=== PATIENT | female | born 1975 | race American Indian/Alaskan Native ===

== ENCOUNTER 2021-09-19 06:03 | Observation (INO) | payer OTHER ==
[2021-09-17 10:03] LABS: Basophils % (Auto) 0.2 % (0.0-1.8); Eosinophils # (Auto) 0.1 K/mm3 (0.0-0.4); Eosinophils % (Auto) 1.7 % (0.0-4.3); Hematocrit 34.7 % (30.3-42.9); Hemoglobin 11.4 gm/dl (10.1-14.3); Lymphocytes # (Auto) 0.9 K/mm3 (1.2-5.4); Lymphocytes % (Auto) 31.7 % (13.4-35.0); Mean Corpuscular HGB Conc 33 % (30-34); Mean Corpuscular Volume 90 fl (79-97); Monocytes # (Auto) 0.4 K/mm3 (0.0-0.8); Monocytes % (Auto) 13.3 % (0.0-7.3); Platelet Count 182 K/mm3 (140-440); Red Blood Count 3.85 M/mm3 (3.65-5.03); Red Cell Distribution Width 13.4 % (13.2-15.2)
[2021-09-17 10:16] LABS: Alanine Aminotransferase 18 units/L (7-56); Albumin 3.9 g/dL (3.9-5); BUN/Creatinine Ratio 11; Blood Urea Nitrogen 10 mg/dL (7-17); Calcium 9.4 mg/dL (8.4-10.2); Hemolysis Index 0
--- NOTE | 2021-09-17 10:49 | Anesthesia Consultation ---
Anesthesia Consult and Med Hx Date of service: 09/19/21 - Airway Anesthetic Teeth Evaluation: Crowns ROM Head & Neck: Adequate Mental/Hyoid Distance: Adequate Mallampati Class: Class II Intubation Access Assessment: Probably Good - Pre-Operative Health Status ASA Pre-Surgery Classification: ASA3 Proposed Anesthetic Plan: General Nerve Block: TAP - Pulmonary Hx Smoking: No Hx Respiratory Symptoms: No (+2FS) Hx Sleep Apnea: No - Cardiovascular System Hx Hypertension: No (Saw social worker in August; ETT/ECHO 08/2016 reviewed) - Central Nervous System Hx Psychiatric Problems: Yes (Situational depression) - Gastrointestinal Hx Gastroesophageal Reflux Disease: Yes - Endocrine Hx Non-Insulin Dependent Diabetes: Yes ("PRE") Hx Thyroid Disease: Yes Hx Hypothyroidism: Yes - Other Systems Hx Cancer: No - Additional Comments Anesthesia Medical History Comments: Mixed connective tissue disease. Sjogren's. Rheumatoid arthritis
[~2021-09-19 06:03] MED LIST: ACETAMINOPHEN 500 MG TAB PO SCH; CELECOXIB 200 MG CAP PO NR; GABAPENTIN 300 MG CAP PO NR; LACTATED RINGERS 1,000 ML IV SCH; MIDAZOLAM 2 MG/2 ML INJ IV NR
[2021-09-19] MEDS ORDERED: BACTERIOSTATIC SODIUM CHLORIDE 0.9% 30 ML VIAL INFILTRATI ONE (06:32)
[2021-09-19] MEDS ORDERED: ACETAMINOPHEN 500 MG TAB PO SCH (07:00)
[2021-09-19] MEDS ORDERED: MAGNESIUM OXIDE 400 MG TAB PO SCH (07:00)
[2021-09-19] MEDS ORDERED: fentaNYL 100 MCG/2 ML INJ IV SCH (07:00)
[2021-09-19] MEDS ORDERED: dexAMETHasone 4 MG/ML VIAL ONE (07:27)
[2021-09-19] MEDS ORDERED: BUPIVACAINE-EPINEPHRINE/PF 0.25%-1:200,000 (30 ML) VIAL INFILTRATI ONE (07:27)
[2021-09-19] MEDS ORDERED: ceFAZolin/Water 2 GM/20 ML 2 GM/20 ML SYRINGE IV NR (07:30)
[2021-09-19] MEDS ORDERED: ROCURONIUM 50 MG/5 ML INJ IV ONE ×2 (07:36→09:44)
[2021-09-19] MEDS ORDERED: fentaNYL 100 MCG/2 ML INJ ONE (07:36)
[2021-09-19] MEDS ORDERED: ONDANSETRON 4 MG/2 ML INJ ONE (07:36)
[2021-09-19] MEDS ORDERED: LIDOCAINE MPF (2%) 20 MG/1 ML VIAL 5 ML ONE (07:36)
[2021-09-19] MEDS ORDERED: HYDROmorphone 1 MG/1 ML INJ ONE (07:37)
[2021-09-19] MEDS ORDERED: propofoL 200 MG/20 ML VIAL IV ONE (07:37)
[2021-09-19] MEDS ORDERED: BUPIVACAINE/PF (0.25%) 2.5 MG/ML 10 ML VIAL INFILTRATI ONE (07:39)
[2021-09-19] MEDS: MIDAZOLAM 2 MG/2 ML INJ IV SCH ×2 (07:44→07:51)
[2021-09-19] MEDS ORDERED: ONDANSETRON 4 MG/2 ML INJ IV PRN (08:00)
[2021-09-19] MEDS ORDERED: HYDROmorphone 1 MG/1 ML INJ IV PRN ×2 (08:00→09:00)
--- NOTE | 2021-09-19 08:01 | Anesthesia Day of Surgery ---
Anesthesia Day of Surgery - Day of Surgery Patient Examined: Yes Patient H&P Reviewed: Yes Patient is NPO: Yes
[2021-09-19] MEDS ORDERED: ceFAZolin/Water 2 GM/20 ML 2 GM/20 ML SYRINGE IV ONE (08:03)
--- NOTE | 2021-09-19 08:08 | History and Physical Report ---
History of Present Illness Date of examination: 09/19/21 Date of admission: 09/19/21 Chief complaint: I am bleeding irregularly History of present illness: Pt is 46 year old who presents for total lap hysterectomy secondary to DUB. Pt had an EMB that revealed proliferative endometrium and patient preferred definitive therapy. Past History Past Medical History: other (rheumatoid) Past Surgical History: No surgical history Social history: Family history: no significant family history Medications and Allergies Allergies Allergy/AdvReac Type Severity Reaction Status Date / Time No Known Allergies Allergy Unverified 09/11/21 17:05 Home Medications Medication Instructions Recorded Confirmed Last Taken Type Atorvastatin (Nf) [Lipitor (Nf)] 10 mg PO QHS 09/11/21 09/11/21 Unknown History Famotidine [Pepcid] 40 mg PO QHS 09/11/21 09/11/21 Unknown History Hydroxychloroquine [Plaquenil] 200 mg PO BID 09/11/21 09/11/21 Unknown History Pantoprazole [Protonix TAB] 20 mg PO QDAY 09/11/21 09/11/21 Unknown History buPROPion SR [Wellbutrin Sr] 150 mg PO BID 09/11/21 09/11/21 Unknown History metFORMIN [Glucophage] 500 mg PO BID 09/11/21 09/11/21 Unknown History Cyclobenzaprine [Flexeril] 10 mg PO BID PRN 09/17/21 09/17/21 Unknown History Fluticasone [Flonase] 1 spray NS QDAY 09/17/21 09/17/21 Unknown History Ondansetron (Nf) [Zofran TAB] 8 mg PO Q8HR 09/17/21 09/17/21 Unknown History Pilocarpine HCl 7.5 mg PO TID 09/17/21 09/17/21 Unknown History Thyroid,Pork [Thyroid] 30 mg PO DAILY 09/17/21 09/17/21 Unknown History hydrOXYzine HCL [Atarax] 25 mg PO TID PRN 09/17/21 09/17/21 Unknown History methylPREDNISolone [Medrol] 4 mg PO Q24HR PRN 09/17/21 09/17/21 Unknown History Active Meds: Active Medications Acetaminophen (Acetaminophen 500 Mg Tab) 1,000 mg PO ONCE@0700 PEREZ Stop: 09/19/21 21:00 Celecoxib (Celecoxib 200 Mg Cap) 400 mg PO PREOP NR Stop: 09/19/21 21:00 Fentanyl (Fentanyl 100 Mcg/2 Ml Inj) 100 mcg IV ONCE@1100 PEREZ Stop: 09/19/21 21:00 Gabapentin (Gabapentin 300 Mg Cap) 300 mg PO PREOP NR Stop: 09/19/21 21:00 Lactated Ringer's (Lactated Ringers) 1,000 mls @ 125 mls/hr IV DIRECT PEREZ Magnesium Oxide (Magnesium Oxide 400 Mg Tab) 400 mg PO ONCE@0700 PEREZ Stop: 09/19/21 21:00 Methocarbamol (Methocarbamol 750 Mg Tab) 1,500 mg PO ONCE@0700 PEREZ Stop: 09/19/21 21:00 Midazolam HCl (Midazolam 2 Mg/2 Ml Inj) 2 mg IV PREOP NR Stop: 09/19/21 23:59 Review of Systems All systems: negative - Constitutional fatigue - Genitourinary Genitourinary: dysmenorrhea, pelvic pain, abnormal vaginal bleeding Menstruation: period heavy - Integumentary deferred Exam Vital Signs Temp Pulse Resp BP Pulse Ox 98.3 F 102 H 16 120/70 100 09/17/21 09:40 09/17/21 09:40 09/17/21 09:40 09/17/21 09:40 09/17/21 09:40 - General physical appearance Positive: well developed, well nourished, no distress - Eyes Positive: PERRL, normal occular movement - Neck Positive: no masses, no bruits, trachea midline, no venous distension - Respiratory Positive: normal expansion, normal respiratory effort, clear to auscultation - Cardiovascular Rhythm: regular Heart Sounds: Present: S1 & S2. Absent: rub, click - Extremities Extremities: no ischemia, pulses symmetrical, No edema - Breasts Breasts: normal, no mass, no skin changes - Abdomen Abdomen: Present: soft, bowel sounds normal. Absent: tender, distended Hernia: none - Genitourinary Female Genitourinary: normal Results - Labs 09/17/21 06:00 09/17/21 06:00 Assessment and Plan Pt here for definitive therapy of AUB. Consents signed and placed on chart. Patient aware that ovaries will stay in place. Will proceed with surgery as planned
[2021-09-19] MEDS ORDERED: dexAMETHasone 20 MG/5 ML VIAL ONE (09:34)
[2021-09-19] MEDS ORDERED: SODIUM CHLORIDE 0.9% IRR 1,500 ML BOTTLE IR ONE (09:34)
[2021-09-19] MEDS ORDERED: WATER FOR IRRIG STERILE 1,500 ML BOTTLE IR ONE (09:34)
[2021-09-19] MEDS ORDERED: LACTATED RINGERS 1,000 ML ONE (09:41)
[2021-09-19] MEDS ORDERED: SODIUM CHLORIDE 0.9% IRRIG SOLN 2000 ML IR ONE (10:05)
[2021-09-19] MEDS ORDERED: NEOSTIGMINE 10MG/10 ML INJ MDV ONE (10:19)
[2021-09-19] MEDS ORDERED: GLYCOPYRROLATE 0.4 MG/2 ML INJ ONE (10:19)
--- NOTE | 2021-09-19 10:56 | Post Operative Note ---
Pre-op diagnosis: Dysfunctional uterine bleeding Post-op diagnosis: same Findings: Normal pelvic anatomy Procedure: Total laparoscopic hysterectomy Anesthesia: GETA Surgeon: HAL ZAMBRANO Estimated blood loss: other (100) Pathology: list (Uterus and fallopian tubes) Specimen disposition: to lab Condition: stable Disposition: PACU
--- NOTE | 2021-09-19 11:00 | Operative Report ---
Operative Report Operative Report: Preoperative diagnosis: Dysfunctional uterine bleeding Postoperative diagnosis: Same Procedure:Total laparoscopic hysterectomy Surgeon: Jessica Bennett. Chief Information Security Officer: Raphael Hoover Anesthesia: General EBL: 100 mL IV fluids: 1800 mL Urine output: 300 mL Findings: Normal size uterus tubes and ovaries Specimens: Uterus, fallopian tubes Complications: None The patient was properly identified as herself. She was then taken to the OR with IV running and in place. She was given general anesthesia without diffi culty. She was placed in a dorsal lithotomy position. She was then prepped and draped in normal sterile fashion. Attention was turned to the patient's vagina. A Edgar catheter was inserted into her bladder. The speculum was then placed the patient's vagina. The cervix was visualized and grasped with tenaculum. The large Vesicare retractor was placed into the patient's uterus and the bulb inflated. The surgeon's gloves were changed and attention turned to the patient's abdomen. A small incision was made in the patient's umbilicus incision a 5 mm trocar was placed. The laparoscope confirmed intra-abdominal placement. The abdomen was insufflated with CO2 gas to approximately 25 mmHg. 2 additional incisions were made in the right and left lower quadrants. Through both of these incisions 5 mm trochars were placed. Attention was turned to the left adnexa. Attention was then turned to the left pelvic sidewall. The broad ligament was traversed and cauterized the tube from the ovarian attachment. Following this the round ligament was cauterized and transected as well and the bladder flap was initiated on the left. The utero-ovarian artery was also cauterixzed and transected. Attention was then turned to the right sidewall. The broad, round and uteroovarian ligaments were all cauterized and transected. The bladder flap was completed as the right side was taken down to meet the left. The uterine arteries were skeletonized bilaterally and cauterized and transected. AT this point the colpotomy incision was initiated using the J hook. A circumferential incision was made around the cup until the uterus was completely free. Attention was then turned back to the vagina. a weighted speculum was placed in the vagina and the manipulator was moved the the point where the cervix could be seen, However was exuded from the actual cervix. With the assistance of the tech the laparoscope was turned back on and the cervix was grasped with an Allis clamp under direct visualization and delivered in one piece through the vagina. The vaginal cuff was then closed in a running locked fashion with 2.0 vicryl. A second look was taken inside the abdomen with the la parosope. At this point the abdomen was deflated. All instruments were then removed from the abdomen. The incisions were then closed with 4-0 Monocryl. The incisions were also injected with quarter percent Marcaine. The patient tolerated the procedure well she was then awakened and taken recovery in stable condition. Sponge needle and instrument counts were correct 2.
[2021-09-19] MEDS ORDERED: IBUPROFEN 800 MG TAB PO PRN (12:28)
[2021-09-19] MEDS ORDERED: ONDANSETRON 4 MG ODT TAB PO PRN (12:28)
[2021-09-19] MEDS ORDERED: ACETAMINOPHEN 325 MG TAB PO PRN (12:28)
[2021-09-19] MEDS ORDERED: METOCLOPRAMIDE 10 MG/2 ML INJ IV PRN (12:28)
[2021-09-19] MEDS ORDERED: MAGNESIUM HYDROXIDE (MOM) ORAL LIQD UDC PO PRN (12:28)
[2021-09-19] MEDS ORDERED: D5W/LACTATED RINGERS 1,000 ML IV SCH (12:28)
--- NOTE | 2021-09-19 12:29 | Post Anesthesia Evaluation ---
- Post Anesthesia Evaluation Patient Participated: Yes Airway Patent: Yes Stable Respiratory Function: Yes Nausea/Vomiting: No Temp > 96.8F: Yes Pain Manageable: Yes Adequeate Hydration: Yes Anesthesia Complications: No Block Receding Appropriately: Not Applicable Patient on Ventilator: No
[2021-09-19] MEDS: oxyCODONE /ACETAMINOPHEN 5-325MG TAB PO PRN ×2 (12:58→22:46)
[2021-09-20] MEDS: oxyCODONE /ACETAMINOPHEN 5-325MG TAB PO PRN ×2 (06:08→12:18)
[2021-09-20 06:22] LABS: Hematocrit 31.2 % (30.3-42.9); Hemoglobin 10.3 gm/dl (10.1-14.3)
--- NOTE | 2021-09-20 08:44 | Event Note ---
Date: 09/20/21 On-call physician notified that patient needs to restart several of her home medications. Orders placed after medication type and dose verified by patient's nurse.
[2021-09-20] MEDS ORDERED: PANTOPRAZOLE 40 MG TAB PO ONE (09:00)
[2021-09-20] MEDS ORDERED: THYROID,PORCINE 60 MG TAB PO SCH (10:00)
[2021-09-20] MEDS ORDERED: buPROPion SR 150 MG TAB PO SCH (10:00)
[2021-09-20] MEDS ORDERED: HYDROXYCHLOROQUINE 200 MG TAB PO SCH (10:00)
[2021-09-20] MEDS ORDERED: metFORMIN 500 MG TAB PO SCH (10:00)
--- NOTE | 2021-09-20 15:12 | Progress Note ---
Assessment and Plan A: POD#1 s/p TLH P: Routine postop care. Follow up in [address] Bennett for postop Subjective - Subjective Date of service: 09/20/21 Principal diagnosis: POD#1 s/p TLH Interval history: Pt feels well today. Voiding. + flatus. Tolerating regular diet. Ambulating without difficulty. Patient reports: appetite normal, voiding normally, pain well controlled, flatus, ambulating normally, no bowel movement Objective - Vital Signs Latest vital signs: Vital Signs Temp Pulse Resp BP BP Pulse Ox 09/20/21 10:00 98 09/20/21 07:33 98.0 F 103 H 20 99/54 97 09/20/21 06:08 12 09/20/21 04:10 98.0 F 101 H 20 128/71 99 09/20/21 00:30 98.0 F 98 H 20 116/69 98 09/19/21 22:46 12 09/19/21 20:40 98.1 F 100 H 20 128/76 98 09/19/21 20:00 98 09/19/21 16:35 97.9 F 90 20 126/73 99 Intake and Output 09/20/21 09/20/21 09/20/21 06:59 14:59 22:59 Intake Total 600 Output Total 740 Balance -140 Intake: Oral 600 Output: Urine 740 Void 740 Other: Total, Intake Amount 120 Total, Output Amount 240 - Exam Breasts: Present: deferred Abdomen: Present: soft Extremities: Absent: tenderness, edema Incision: Present: intact
--- NOTE | 2021-09-20 15:14 | Discharge Summary ---
Providers - Providers Date of Admission: 09/19/21 11:19 Date of discharge: 09/20/21 Attending physician: JESSICA ZAMBRANO Primary care physician: PJ SALAS Hospitalization Reason for admission: other (hysterectomy ) Procedure details: Total Laparoscopic Hysterectomy Incision: intact (with skin glue) Discharge diagnosis: other (Dysfunctional Uterine Bleeding ) Hospital course: This patient was admitted for total laparoscopic hysterectomy which she tolerated well. She was observed until postoperative day #1 when she met discharge criteria. She will follow-up in [address] Jessica Zambrano. Condition at discharge: Stable Disposition: 01 HOME / SELF CARE / HOMELESS - Discharge Diagnoses (1) DUB (dysfunctional uterine bleeding) Status: Acute (2) Obesity Status: Acute Qualifiers: Obesity type: unspecified obesity type Obesity classification: adult class 1 (BMI 30 - 34.9) Serious obesity comorbidity presence: unspecified whether serious comorbidity present Body mass index: BMI 32.0-32.9 Qualified Code(s): E66.9 - Obesity, unspecified; Z68.32 - Body mass index [BMI] 32.0-32.9, adult Plan - Discharge Medications Prescriptions: Ibuprofen [Motrin] 800 mg PO Q8HR PRN #40 tablet PRN Reason: Pain, Mild (1-3) oxyCODONE /ACETAMINOPHEN [Percocet 5/325] 2 tab PO Q6HR PRN #40 tablet PRN Reason: Pain - Provider Discharge Summary Activity: routine, no sex for 6 weeks, no heavy lifting 4 weeks, no strenuous exercise Diet: routine Instructions: routine Additional instructions: [] Smoking cessation referral if applicable(refer to patient education folder for contact #) [] Refer to [facility] Booklet Call your doctor immediately for: * Fever > 100.5 * Heavy vaginal bleeding ( >1 pad per hour) * Severe persistent headache * Shortness of breath * Reddened, hot, painful area to leg or breast * Drainage or odor from incision. * Keep incision clean and dry at all times and follow doctor's instructions regarding bathing/showering - Follow up plan Follow up: PJ SALAS MD [Primary Care Provider] - 7 Days JESSICA ZAMBRANO MD [Staff Physician] - 7 Days Forms: [facility] Discharge Summary
[2021-09-20] MEDS ORDERED: LACTULOSE 20 GM/30 ML ORAL LIQD PO ONE (15:45)
[2021-09-20 15:49] VITALS: BP 124/76
== END 2021-09-20 16:18 | disposition home or self-care (01) ==
LOC: OR 06:03 → OB 11:19
PROVIDERS: ADMIT Obstetrics & Gynecology; ATTEND Obstetrics & Gynecology
DX: N93.9 Abnormal uterine and vaginal bleeding, unspecified (principal); Z20.822 Contact with and (suspected) exposure to COVID-19; M06.9 Rheumatoid arthritis, unspecified; E66.9 Obesity, unspecified; Z68.32 Body mass index [BMI] 32.0-32.9, adult; Z79.84 Long term (current) use of oral hypoglycemic drugs; Z79.899 Other long term (current) drug therapy; Z98.890 Other specified postprocedural states
CPT/HCPCS: 36415; 58552; 64450; 64488; 80053; 82962; 84703; 85014; 85018; 85025; 86850; 86900; 86901; 88307; 96374; G0378; J0690; J1100; J1170; J1815; J2250; J2405; J2704; J2710; J2765; J3010; J3490; J7120; Q4140; U0003; G0379; Q0162